=== PATIENT | female | born 1940 ===

== ENCOUNTER 2018-02-15 07:55 | Observation (INO) | payer MEDICAID ==
[2018-02-15 09:10] LABS: BASO % 0.4 % (0.0-2.0); EOS # 0.2 K/uL (0.0-0.7); EOS % 2.2 % (0.0-4.0); HEMOGLOBIN 12.7 g/dL (11.0-16.0); LYMPH # 2.6 K/uL (1.0-4.3); LYMPH % 37.4 % (20.0-40.0); MEAN CELL VOLUME 90.9 fL (81.0-99.0); MEAN CORPUSCULAR HEMOGLOBIN 30.6 pg (27.0-31.0); MEAN CORPUSCULAR HGB CONC 33.7 g/dL (33.0-37.0); MEAN PLATELET VOLUME 8.7 fL (7.2-11.7); MONO # 0.5 K/uL (0.0-0.8); MONO % 6.9 % (0.0-10.0); NEUT # 3.7 K/uL (1.8-7.0); NEUT % 53.1 % (50.0-75.0); NRBC % 0.1 % (0.0-2.0); RBC 4.15 Mil/uL (3.80-5.20); RED CELL DISTRIBUTION WIDTH 14.6 % (11.5-14.5); WHITE BLOOD COUNT 6.9 K/uL (4.8-10.8)
[2018-02-15 09:21] LABS: ALB/GLOB RATIO 1.3 (1.0-2.1); ALBUMIN 4.3 g/dL (3.5-5.0); ALT/SGPT 29 U/L (9-52); AST/SGOT 28 U/L (14-36); BLOOD UREA NITROGEN 18 mg/dL (7-17); CALCIUM 9.2 mg/dl (8.6-10.4); GFR NON-AFRICAN AMERICAN > 60; INR 1.1; PROTHROMBIN TIME 11.9 SECONDS (9.7-12.2)
[2018-02-15 09:35] LABS: B-TYPE NATRIURETIC PEPTIDE 39.8 pg/mL (0-900)
--- NOTE | 2018-02-15 09:45 | C.PDOC ---
History Of Present Illness Patient is a 77 year old Female with PMHx of HTN, DMII, HLD, hypothyroidism, brain aneurysm,chronic back pain, depression, anxiety, and vertigo who presents today for chest pain and bilateral arm pain (left > right). Patient woke up from sleep at 3am with chest pressure and pain with numbness and tingling in left arm. Patient says the left arm pain comes and goes. Patient says the chest pressure is 6/10 and associated with palpitations. Patient says she has had palpitations most of her life, but they have been better for the past few years since she has been taking Cymbalta. Patient also admits to associated shortness of breath and nausea, but no vomiting. When son called 911 this morning they advised for patient to take 2 Aspirin 81mg which she did. Patient also given Nitro SL and ASA 325mg on the field. Currently patient says the chest pressure is slightly better, but still feels pain in left arm. Patient has had chest pain in the past and was evaluated by a day camp unit leader 1 month ago and had an echo done, but has not obtained the results. Patient moved to the [facility] in June and has had no travel since. Patient denies any sick contacts. <Bell Todd - Last Filed: 02/15/18 12:56> <Margarita Leo - Last Filed: 02/15/18 10:48> History Per: Patient History/Exam Limitations: no limitations Onset/Duration Of Symptoms: Hrs Current Symptoms Are (Timing): Better Severity: Moderate Pain Scale Rating Of: 6 Quality: Pressure Associated Symptoms: Nausea, Dyspnea Exacerbating Factors: None Alleviating Factors: None Nitro Therapy Administered: Per EMS, Partial Relief Recent travel outside of the [facility]: No Additional History Per: Family <Bell Todd - Last Filed: 02/15/18 12:56> Time Seen by Provider: 02/15/18 08:05 Chief Complaint (Nursing): Palpitations Past Medical History Vital Signs: Last Vital Signs Temp 98.1 F 02/15/18 08:03 Pulse 82 02/15/18 08:03 Resp 18 02/15/18 08:03 BP 155/86 H 02/15/18 08:03 Pulse Ox 97 02/15/18 10:26 <Margarita Leo - Last Filed: 02/15/18 10:48> Vital Signs: Last Vital Signs Temp 98.1 F 02/15/18 08:03 Pulse 82 02/15/18 08:03 Resp 18 02/15/18 08:03 BP 155/86 H 02/15/18 08:03 Pulse Ox 97 02/15/18 08:03 - Medical History PMH: Back Problems, Diabetes, HTN, Hypercholesterolemia, Hypothyroidism Surgical History: No Surg Hx Family History: States: Stroke, [place] Other Family History: brother: [place] at 60. Father: from stroke at 80 - Social History Hx Tobacco Use: No Hx Alcohol Use: No Hx Substance Use: No - Immunization History Hx Tetanus Toxoid Vaccination: No Hx Influenza Vaccination: Yes (2017) Hx Pneumococcal Vaccination: Yes (2017) <Bell Todd - Last Filed: 02/15/18 12:56> Review Of Systems Constitutional: Negative for: Fever, Chills Cardiovascular: Positive for: Chest Pain, Palpitations Respiratory: Positive for: Shortness of Breath. Negative for: Cough Gastrointestinal: Positive for: Nausea. Negative for: Vomiting Musculoskeletal: Positive for: Shoulder Pain, Arm Pain Skin: Negative for: Rash Neurological: Positive for: Numbness. Negative for: Weakness, Confusion, Dizziness Psych: Positive for: Anxiety <Bell Todd - Last Filed: 02/15/18 12:56> Physical Exam - Physical Exam Appears: Non-toxic, No Acute Distress Skin: Normal Color Head: Atraumatic, Normacephalic Eye(s): bilateral: Normal Inspection Neck: Normal Chest: Symmetrical, No Tenderness Cardiovascular: Rhythm Regular Respiratory: Normal Breath Sounds, No Accessory Muscle Use, No Rales, No Rhonchi, No Stridor, No Wheezing Gastrointestinal/Abdominal: Normal Exam, Bowel Sounds, Soft, No Tenderness Extremity: Tenderness Neurological/Psych: Oriented x3, Normal Cranial Nerves, No Normal Motor (left arm decreased strength due to pain), Normal Sensation, No Romberg Extremity: Right: No Drift, Left: No Drift, Upper: No Drift, Lower: No Drift <Bell Todd - Last Filed: 02/15/18 12:56> ED Course And Treatment - Laboratory Results Result Diagrams: 02/15/18 09:06 02/15/18 09:06 <Margarita Leo - Last Filed: 02/15/18 10:48> - Laboratory Results Result Diagrams: 02/15/18 09:06 02/15/18 09:06 ECG: Interpreted By Me, Viewed By Me ECG Rhythm: Sinus Rhythm, Nonspecific Changes ECG Interpretation: No Acute Changes Interpretation Of ECG: NSR Rate From EC (normal intervals, normal axis ) O2 Sat by Pulse Oximetry: 97 Pulse Ox Interpretation: Normal - Radiology CXR: Interpreted by Me, Viewed By Me CXR Interpretation: Yes: No Acute Disease <Bell Todd - Last Filed: 02/15/18 12:56> Medical Decision Making Medical Decision Makin:15: Patient re-evaluated after administration of Nitro .4mg SL. Patient says it helped and the chest pressure has decreased to 4/10. Patient still feeling palpitations and left arm pain with tingling. 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 MD/DO has examined the patient and agrees with the treatment plan. <eBll Todd - Last Filed: 02/15/18 12:56>
--- NOTE | 2018-02-15 11:37 | RAD ---
Date of service: 02/15/2018 HISTORY: chest pain COMPARISON: Portable chest 07/08/2012. FINDINGS: LUNGS: No active pulmonary disease. PLEURA: No significant pleural effusion identified, no pneumothorax apparent. CARDIOVASCULAR: No aortic atherosclerotic calcification present. Normal cardiac size. No pulmonary vascular congestion. OSSEOUS STRUCTURES: No significant abnormalities. VISUALIZED UPPER ABDOMEN: Normal. OTHER FINDINGS: None. IMPRESSION: No interval acute cardiopulmonary disease appreciated.
--- NOTE | 2018-02-15 13:52 | CP.PCM.HP ---
History of Present Illness - History of Present Illness History of Present Illness: Patient is a 77 year old Female with PMHx of HTN, DMII, HLD, hypothyroidism, brain aneurysm,chronic back pain, depression, anxiety, and vertigo who presents today for chest pain and bilateral arm pain (left > right). Patient woke up from sleep at 3am with chest pressure and pain with numbness and tingling in left arm. Patient says the left arm pain comes and goes. Patient says the chest pressure is 6/10 and associated with palpitations. Patient says she has had palpitations most of her life, but they have been better for the past few years since she has been taking Cymbalta. Patient also admits to associated shortness of breath and nausea, but no vomiting. When son called 911 this morning they advised for patient to take 2 Aspirin 81mg which she did. Patient also given Nitro SL and ASA 325mg on the field. Present on Admission - Present on Admission Any Indicators Present on Admission: No Review of Systems - Review of Systems All systems: reviewed and no additional remarkable complaints except (chest pain) Past Patient History - Past Social History Smoking Status: Never Smoked - CARDIAC Hx Hypercholesterolemia: Yes Hx Hypertension: Yes - NEUROLOGICAL Hx Neurological Disorder: Yes Other/Comment: ANEURYSM - ENDOCRINE/METABOLIC Hx Hypothyroidism: Yes - MUSCULOSKELETAL/RHEUMATOLOGICAL Hx Musculoskeletal Disorders: Yes - PSYCHIATRIC Hx Substance Use: No - SURGICAL HISTORY Hx Surgeries: No Meds Allergies/Adverse Reactions: Allergies Allergy/AdvReac Type Severity Reaction Status Date / Time No Known Allergies Allergy Verified 02/15/18 08:22 Physical Exam - Constitutional Appears: Well - Head Exam Head Exam: ATRAUMATIC, NORMAL INSPECTION, NORMOCEPHALIC - Eye Exam Eye Exam: EOMI, Normal appearance, PERRL Pupil Exam: NORMAL ACCOMODATION, PERRL - ENT Exam ENT Exam: Mucous Membranes Moist, Normal Exam - Neck Exam Neck exam: Positive for: Normal Inspection - Respiratory Exam Respiratory Exam: Clear to Auscultation Bilateral, NORMAL BREATHING PATTERN - Cardiovascular Exam Cardiovascular Exam: REGULAR RHYTHM - GI/Abdominal Exam GI & Abdominal Exam: Normal Bowel Sounds, Soft. absent: Tenderness - Extremities Exam Extremities exam: Positive for: normal inspection - Back Exam Back exam: NORMAL INSPECTION - Neurological Exam Neurological exam: Alert, CN II-XII Intact, Normal Gait, Oriented x3, Reflexes Normal - Psychiatric Exam Psychiatric exam: Normal Affect, Normal Mood - Skin Skin Exam: Dry, Intact, Normal Color, Warm Results - Vital Signs Recent Vital Signs: Last Vital Signs Temp 98.1 F 02/15/18 08:03 Pulse 79 02/15/18 10:52 Resp 12 02/15/18 10:52 BP 120/67 02/15/18 10:52 Pulse Ox 97 02/15/18 12:56 - Labs Result Diagrams: 02/15/18 09:06 02/15/18 09:06 Labs: Laboratory Results - last 24 hr 02/15/18 02/15/18 02/15/18 08:03 09:06 09:06 WBC 6.9 RBC 4.15 Hgb 12.7 Hct 37.7 MCV 90.9 MCH 30.6 MCHC 33.7 RDW 14.6 H Plt Count 274 MPV 8.7 Neut % (Auto) 53.1 Lymph % (Auto) 37.4 Norman % (Auto) 6.9 Eos % (Auto) 2.2 Baso % (Auto) 0.4 Neut # (Auto) 3.7 Lymph # (Auto) 2.6 Norman # (Auto) 0.5 Eos # (Auto) 0.2 Baso # (Auto) 0.0 PT 11.9 INR 1.1 APTT 33 Sodium Potassium Chloride Carbon Dioxide Anion Gap BUN Creatinine Est GFR ( Amer) Est GFR (Non-Af Amer) POC Glucose (mg/dL) 142 H Random Glucose Calcium Total Bilirubin AST ALT Alkaline Phosphatase Troponin I NT-Pro-B Natriuret Pep Total Protein Albumin Globulin Albumin/Globulin Ratio 02/15/18 09:06 WBC RBC Hgb Hct MCV MCH MCHC RDW Plt Count MPV Neut % (Auto) Lymph % (Auto) Norman % (Auto) Eos % (Auto) Baso % (Auto) Neut # (Auto) Lymph # (Auto) Norman # (Auto) Eos # (Auto) Baso # (Auto) PT INR APTT Sodium 138 Potassium 4.1 Chloride 101 Carbon Dioxide 26 Anion Gap 14 BUN 18 H Creatinine 0.7 Est GFR ( Amer) > 60 Est GFR (Non-Af Amer) > 60 POC Glucose (mg/dL) Random Glucose 151 H Calcium 9.2 Total Bilirubin 0.5 AST 28 ALT 29 Alkaline Phosphatase 86 Troponin I < 0.0120 NT-Pro-B Natriuret Pep 39.8 Total Protein 7.6 Albumin 4.3 Globulin 3.3 Albumin/Globulin Ratio 1.3 Assessment & Plan (1) Palpitations Status: Acute (2) HTN (hypertension) Status: Chronic (3) Diabetes Status: Chronic (4) Combined hyperlipidemia Status: Chronic (5) Chest pain Status: Acute Comment: non invasive cardiac w/p
[2018-02-15 17:10] LABS: CK-MB < 0.22 ng/mL (0.0-3.38)
[2018-02-15] MEDS ORDERED: (Novolin R) Insulin Human Regular 100 units/ml vial ONE (17:36)
[2018-02-15] MEDS: (Novolin R) Insulin Human Regular 100 units/ml vial SC SCH ×2 (17:37→22:55)
[2018-02-15] MEDS: Enoxaparin 60 mg Syringe SC SCH ×2 (17:38→22:50)
[2018-02-15] MEDS: Rosuvastatin Calcium 2.5 mg Tab PO SCH (22:50)
[2018-02-16 00:53] VITALS: RESP 20
[2018-02-16 01:06] LABS: CK-MB < 0.22 ng/mL (0.0-3.38)
[2018-02-16] MEDS: Levothyroxine 50 MCG TAB PO SCH (06:24)
[2018-02-16] MEDS: (Novolin R) Insulin Human Regular 100 units/ml vial SC SCH ×4 (07:47→22:39)
[2018-02-16] MEDS: Pantoprazole 40 mg EC Tab PO SCH (08:00)
[2018-02-16 08:18] LABS: CK-MB 0.31 ng/mL (0.0-3.38)
[2018-02-16] MEDS: Enoxaparin 60 mg Syringe SC SCH ×2 (09:45→22:34)
[2018-02-16] MEDS ORDERED: Home Med 1 UNIT (Meloxicam [Mobic] 15 MG) PO SCH (10:00)
--- NOTE | 2018-02-16 14:38 | CP.PCM.PN ---
Subjective - Date & Time of Evaluation Date of Evaluation: 02/16/18 Time of Evaluation: 14:36 - Subjective Subjective: CHIEF COMPLAINTS TODAY : Patient has no further chest pain complaints of leg cramps. ROS. HEENT : N. Resp : No cough, wheezing ,pleuritic CP ,or hemoptysis Cardio : No anginal CP, PND, orthopnea, palpitation GI : No abd.pain, n/v ,diarrhea or GI bleeding . SQUIRREL MAN : No headache, vertigo, focal deficit. Musculoskel : No joint swelling , Derm : No rash Psych : Normal affect. Ext : No swelling ,calf pain PE. Pt. is alert awake in no distress. V.S As noted in the chart Head ,ear nose,throat and eyes : Normal. Neck : Supple with normal carotids. Lungs: Clear air entry. Heart : S1 & S2 normal with S4. No murmur. Abd : Soft non tender with normal bowel sounds. Neuro : Moves all ext. with no localized deficit. Ext : No edema with intact pulses.Non tender calves Derm : No rashes or decubitus ulcer. LABS/RADIOLOGY: ASSESSMENT/PLAN : 3 sets of cardiac enzymes are negative. We will check echo and discussed with the family Objective - Vital Signs/Intake and Output Vital Signs (last 24 hours): Temp Pulse Resp BP Pulse Ox 97.9 F 68 20 155/81 H 97 02/16/18 07:00 02/16/18 07:30 02/16/18 07:00 02/16/18 07:00 02/16/18 07:00 - Medications Medications: Current Medications Duloxetine HCl (Cymbalta) 30 mg PO DAILY [facility] Last Admin: 02/16/18 09:44 Dose: 30 mg Enoxaparin Sodium (Lovenox) 60 mg SC Q12 [facility] Last Admin: 02/16/18 09:45 Dose: 60 mg Home Med (Meloxicam [Mobic]) 15 mg PO DAILY [facility] Influenza Virus Vaccine (Fluzone Quad 4428-1500) 60 mcg IM .ONCE ONE Stop: 02/17/18 14:01 Insulin Human Regular (Novolin R) 0 unit SC [facility]; Protocol Last Admin: 02/16/18 12:45 Dose: 2 unit Levothyroxine Sodium (Synthroid) 50 mcg PO DAILY@0630 [facility] Last Admin: 02/16/18 06:24 Dose: 50 mcg Losartan Potassium (Cozaar) 100 mg PO DAILY [facility] Last Admin: 02/16/18 09:43 Dose: 100 mg Metformin HCl (Glucophage) 850 mg PO BIDCC [facility] Last Admin: 02/16/18 09:44 Dose: Not Given Nitroglycerin (Nitrostat Sl Tab) 0.4 mg SL Q5M PRN PRN Reason: Pain, moderate (4-7) Last Admin: 02/15/18 10:37 Dose: 0.4 mg Pantoprazole Sodium (Protonix Ec Tab) 40 mg PO ACB [facility] Last Admin: 02/16/18 08:00 Dose: 40 mg Pneumococcal Polyvalent Vaccine (Pneumovax 23 Vaccine) 0.5 ml IM .ONCE ONE Stop: 02/17/18 14:01 Propranolol HCl (Inderal) 10 mg PO BID [facility] Last Admin: 02/16/18 09:44 Dose: 10 mg Rosuvastatin Calcium (Crestor) 2.5 mg PO HS [facility] Last Admin: 02/15/18 22:50 Dose: 2.5 mg - Labs Labs: 02/15/18 09:06 02/15/18 09:06 PT 11.9 SECONDS (9.7-12.2) 02/15/18 09:06 INR 1.1 02/15/18 09:06 APTT 33 SECONDS (21-34) 02/15/18 09:06 Assessment and Plan (1) Palpitations Status: Acute (2) HTN (hypertension) Status: Chronic (3) Diabetes Status: Chronic (4) Combined hyperlipidemia Status: Chronic (5) Chest pain Status: Acute
--- NOTE | 2018-02-16 18:22 | CARD ---
APPROVED REPORT Date of service: 02/16/2018 EXAM: Two-dimensional and M-mode echocardiogram with Doppler and color Doppler. Other Information Quality : GoodRhythm : INDICATION Cardiac Disease: CAD Chest Pain Palpitations RISK FACTORS Hypertension Hyperlipidemia Diabetes 2D DIMENSIONS LA [id number] (18-58mL)LVEF (Juarez's)75.06 % IVC0.00 cm M-Mode DIMENSIONS Left Atrium (MM)3.70 (2.5-4.0cm)IVSd1.29 (0.7-1.1cm) Aortic Root2.85 (2.2-3.7cm)LVDd4.77 (4.0-5.6cm) Aortic Cusp Exc.1.92 (1.5-2.0cm)PWd1.03 (0.7-1.1cm) FS (%) 48 %LVDs2.50 (2.0-3.8cm) LVEF (%)79 (>50%) Mitral Valve MV E Wvqaaouz34.1cm/sMV A Iaiuhgno90.4cm/sE/A ratio0.9 TDI Lateral E' Peak V6.03cm/sMedial E' Peak V4.93cm/sE/Lateral E'12.6 E/Medial E'15.4 Tricuspid Valve TR Peak Sgvkioso817rs/sTR Peak [id number] LEFT VENTRICLE The left ventricle is normal size. There is normal left ventricular wall thickness. The left ventricular systolic function is normal. The left ventricular ejection fraction is within the normal range. There is normal LV segmental wall motion. Transmitral Doppler flow pattern is Grade I-abnormal relaxation pattern. RIGHT VENTRICLE The right ventricle is normal size. The right ventricular systolic function is normal. ATRIA The left atrium size is normal. The right atrium size is normal. AORTIC VALVE The aortic valve is normal in structure. No aortic regurgitation is present. MITRAL VALVE The mitral valve is normal in structure. There is no mitral valve regurgitation noted. TRICUSPID VALVE The tricuspid valve is normal in structure. There is trace to mild tricuspid regurgitation. Right ventricular systolic pressure is estimated at less than 30 mmHg. GREAT VESSELS The aortic root is normal in size. The aortic root displays mild to moderate sclerocalcific changes. The IVC is normal in size and collapses >50% with inspiration. PERICARDIAL EFFUSION There is no pericardial effusion. Fat pad noted. <Conclusion> The left ventricular systolic function is normal. There is normal LV segmental wall motion. Transmitral Doppler flow pattern is Grade I-abnormal relaxation pattern. The right ventricular systolic function is normal. No significant valvular abnormality noted. The aortic root displays mild to moderate sclerocalcific changes. There is no pericardial effusion. Fat pad noted.
[2018-02-16] MEDS: Rosuvastatin Calcium 2.5 mg Tab PO SCH (22:34)
[2018-02-17] MEDS: Levothyroxine 50 MCG TAB PO SCH (06:27)
[2018-02-17] MEDS: (Novolin R) Insulin Human Regular 100 units/ml vial SC SCH ×3 (08:04→17:12)
[2018-02-17] MEDS: Pantoprazole 40 mg EC Tab PO SCH (08:30)
[2018-02-17] MEDS: Enoxaparin 60 mg Syringe SC SCH (09:22)
[2018-02-17] MEDS ORDERED: Enoxaparin 60 mg Syringe SC SCH (11:45)
--- NOTE | 2018-02-17 12:40 | CARD ---
APPROVED REPORT Date of service: 02/16/2018 EKG Measurement Heart [id number] <Conclusion> Normal sinus rhythm Nonspecific T wave abnormality Prolonged QT Abnormal ECG
[2018-02-17] MEDS ORDERED: Pneumococcal 23-Valent Vaccine IM ONE (14:00)
[2018-02-17] MEDS ORDERED: Influenza Vaccine 60 MCG/0.5 ML SYR (3 yr & up) IM ONE (14:00)
--- NOTE | 2018-02-17 14:30 | CP.PCM.DIS ---
Provider - Provider Date of Admission: 02/15/18 11:31 Attending physician: Ilene Nichols MD Time Spent in preparation of Discharge (in minutes): 36 Diagnosis - Discharge Diagnosis (1) Palpitations Status: Acute (2) HTN (hypertension) Status: Chronic (3) Diabetes Status: Chronic (4) Combined hyperlipidemia Status: Chronic (5) Chest pain Status: Acute Hospital Course - Lab Results Lab Results: Most Recent Lab Values WBC 6.9 K/uL (4.8-10.8) 02/15/18 09:06 RBC 4.15 Mil/uL (3.80-5.20) 02/15/18 09:06 Hgb 12.7 g/dL (11.0-16.0) 02/15/18 09:06 Hct 37.7 % (34.0-47.0) 02/15/18 09:06 MCV 90.9 fL (81.0-99.0) 02/15/18 09:06 MCH 30.6 pg (27.0-31.0) 02/15/18 09:06 MCHC 33.7 g/dL (33.0-37.0) 02/15/18 09:06 RDW 14.6 % (11.5-14.5) H 02/15/18 09:06 Plt Count 274 K/uL (130-400) 02/15/18 09:06 MPV 8.7 fL (7.2-11.7) 02/15/18 09:06 Neut % (Auto) 53.1 % (50.0-75.0) 02/15/18 09:06 Lymph % (Auto) 37.4 % (20.0-40.0) 02/15/18 09:06 Morgan % (Auto) 6.9 % (0.0-10.0) 02/15/18 09:06 Eos % (Auto) 2.2 % (0.0-4.0) 02/15/18 09:06 Baso % (Auto) 0.4 % (0.0-2.0) 02/15/18 09:06 Neut # (Auto) 3.7 K/uL (1.8-7.0) 02/15/18 09:06 Lymph # (Auto) 2.6 K/uL (1.0-4.3) 02/15/18 09:06 Morgan # (Auto) 0.5 K/uL (0.0-0.8) 02/15/18 09:06 Eos # (Auto) 0.2 K/uL (0.0-0.7) 02/15/18 09:06 Baso # (Auto) 0.0 K/uL (0.0-0.2) 02/15/18 09:06 PT 11.9 SECONDS (9.7-12.2) 02/15/18 09:06 INR 1.1 02/15/18 09:06 APTT 33 SECONDS (21-34) 02/15/18 09:06 Sodium 138 mmol/L (132-148) 02/15/18 09:06 Potassium 4.1 mmol/L (3.6-5.2) 02/15/18 09:06 Chloride 101 mmol/L (98-107) 02/15/18 09:06 Carbon Dioxide 26 mmol/L (22-30) 02/15/18 09:06 Anion Gap 14 (10-20) 02/15/18 09:06 BUN 18 mg/dL (7-17) H 02/15/18 09:06 Creatinine 0.7 mg/dL (0.7-1.2) 02/15/18 09:06 Est GFR ( Amer) > 60 02/15/18 09:06 Est GFR (Non-Af Amer) > 60 02/15/18 09:06 POC Glucose (mg/dL) 119 mg/dL (65-110) H 02/17/18 06:15 Random Glucose 151 mg/dL (65-105) H 02/15/18 09:06 Calcium 9.2 mg/dl (8.6-10.4) 02/15/18 09:06 Total Bilirubin 0.5 mg/dL (0.2-1.3) 02/15/18 09:06 AST 28 U/L (14-36) 02/15/18 09:06 ALT 29 U/L (9-52) 02/15/18 09:06 Alkaline Phosphatase 86 U/L (38-126) 02/15/18 09:06 Total Creatine Kinase 30 U/L (30-135) 02/16/18 07:42 CK-MB (Mass) 0.31 ng/mL (0.0-3.38) 02/16/18 07:42 Troponin I < 0.0120 ng/mL (0.00-0.120) 02/16/18 07:42 NT-Pro-B Natriuret Pep 39.8 pg/mL (0-900) 02/15/18 09:06 Total Protein 7.6 g/dL (6.3-8.3) 02/15/18 09:06 Albumin 4.3 g/dL (3.5-5.0) 02/15/18 09:06 Globulin 3.3 gm/dL (2.2-3.9) 02/15/18 09:06 Albumin/Globulin Ratio 1.3 (1.0-2.1) 02/15/18 09:06 - Hospital Course Hospital Course: Patient is a 77 year old Female with PMHx of HTN, DMII, HLD, hypothyroidism, brain aneurysm,chronic back pain, depression, anxiety, and vertigo who presents today for chest pain and bilateral arm pain (left > right). Patient woke up from sleep at 3am with chest pressure and pain with numbness and tingling in left arm. Patient says the left arm pain comes and goes. Patient says the chest pressure is 6/10 and associated with palpitations. Patient says she has had palpitations most of her life, but they have been better for the past few years since she has been taking Cymbalta. Patient also admits to associated shortness of breath and nausea, but no vomiting. When son called 911 this morning they advised for patient to take 2 Aspirin 81mg which she did. Patient also given Nitro SL and ASA 325mg on the field. Patient was admitted on the telemetry. There was no any cardiac arrhythmia during the hospital stay. Cardiac enzymes 3 sets of troponin were negative. EKG did not show any acute ST-T changes. Echocardiogram showed normal left ankle ejection fraction with no wall motion abnormality. On further inquiry patient has seen multiple warehouse order selector as outpatient but patient was unable to describe that she had a stress test done. Patient was advised to follow with her primary care for referral to warehouse order selector first outpatient stress test. Patient will currently continue her present medication. Discharge Exam - Head Exam Head Exam: ATRAUMATIC, NORMAL INSPECTION, NORMOCEPHALIC Discharge Plan - Follow Up Plan Condition: STABLE Disposition: HOME/ ROUTINE
[2018-02-17 15:48] VITALS: BP 164/90; PULSE 76; TEMP 98.2; O2SAT 96
--- NOTE | 2018-02-17 17:56 | CARD ---
APPROVED REPORT Date of service: 02/15/2018 EKG Measurement Heart [id number] <Conclusion> Sinus rhythm with occasional premature ventricular complexes Nonspecific T wave abnormality Abnormal ECG
--- NOTE | 2018-02-17 17:57 | CARD ---
APPROVED REPORT Date of service: 02/15/2018 EKG Measurement Heart [id number] <Conclusion> Normal sinus rhythm Nonspecific ST abnormality Abnormal ECG
== END 2018-02-17 18:15 | disposition home or self-care (01) ==
LOC: C.ER 07:55 → C.9E 11:31 → C.6T 18:52
PROVIDERS: ADMIT Internal Medicine Cardiovascular Disease; ATTEND Internal Medicine Cardiovascular Disease
DX: R00.2 Palpitations (principal); I10 Essential (primary) hypertension; E11.9 Type 2 diabetes mellitus without complications; E78.2 Mixed hyperlipidemia; E03.9 Hypothyroidism, unspecified; Z82.3 Family history of stroke; Z82.49 Family history of ischemic heart disease and other diseases of the circulatory system
CPT/HCPCS: 36415; 71045; 80053; 82948; 83880; 84484; 85025; 85610; 85730; 90471; 90674; 90732; 93005; 93306; 96372; 99285; G0378; J1650